=== PATIENT | male | born 1980 | race American Indian/Alaskan Native ===

== ENCOUNTER 2021-12-10 08:29 | Outpatient (CLI) | payer OTHER ==
--- NOTE | 2021-12-10 09:27 | XRay Report ---
CHEST 2 VIEWS INDICATION: RULE OUT ACTIVE TB. COMPARISON: none FINDINGS: Support devices: None. Heart: Within normal limits. Lungs/pleura: No acute air space or interstitial disease. No pleural abnormality or pneumothorax. Additional findings: None. IMPRESSION: No acute findings. No findings to suggest primary or reactive tuberculosis in the chest. Signer Name: Víctor Chance Jr, MD Signed: 12/10/2021 9:22 AM Workstation Name: [id number]
== END 2021-12-10 08:30 | disposition home or self-care (01) ==
LOC: LAB 08:29
DX: A15.9 Respiratory tuberculosis unspecified (principal)
CPT/HCPCS: 71046